=== PATIENT | female | born 1975 | race Caucasian/White ===

== ENCOUNTER 2017-08-28 12:35 | Emergency (ER) | payer SELFPAY ==
[~2017-08-28] VITALS: Ht 167.6 cm; Wt 76.0 kg
[2017-08-28 12:47] VITALS: BP 133/83; PULSE 84; RESP 16; O2SAT 100
--- NOTE | 2017-08-28 13:22 | PD ---
HPI Chief Complaint: Medical Clearance Time Seen by Provider: 13:11 Travel History International Travel<30 days: No Contact w/Intl Traveler<30days: No Traveled to known affect area: No History of Present Illness HPI 42-year-old female patient presents to the ER today, has previous history of mandibular dislocations, was yawning today and states that she thinks her mandible dislocated. She is not able to close her mouth completely, denies any other issues or injuries. Modifying Factors: None Associated Signs & Symptoms: Mandibular dislocation Risk Factors: [facility] Past Medical History Medical History: Denies Significant Hx Medical other: No (jaw locks up) Influenza Vaccination: Yes ?: Not LMP: tubes tied Tubal Ligation: Yes Past Surgical History Surgical History: No Previous Surgery Social History Alcohol Use: No Tobacco Use: No Substance Use: No (hx of) Allergies-Medications (Allergen,Severity, Reaction): Coded Allergies: No Known Allergies (Unverified , 08/28/17) Reported Meds & Prescriptions Reported Meds & Active Scripts Active No Active Prescriptions or Reported Medications Review of Systems Except as stated in HPI: all other systems reviewed are Neg Physical Exam Narrative GENERAL: Well-developed middle age female patient currently in moderate distress. Awake and oriented 3. SKIN: Focused skin assessment warm/dry. HEAD: Atraumatic. Normocephalic. EYES: Pupils equal and round. No scleral icterus. No injection or drainage. ENT: No nasal bleeding or discharge. Mucous membranes pink and moist. Notable for claudication, leftward deviation of the mandible. NECK: Trachea midline. No JVD. CARDIOVASCULAR: Regular rate and rhythm. No murmur appreciated. RESPIRATORY: No accessory muscle use. Clear to auscultation. Breath sounds equal bilaterally. GASTROINTESTINAL: Abdomen soft, non-tender, nondistended. Hepatic and splenic margins not palpable. MUSCULOSKELETAL: No obvious deformities. No clubbing. No cyanosis. No edema. NEUROLOGICAL: Awake and alert. No obvious cranial nerve deficits. Motor grossly within normal limits. Normal speech. PSYCHIATRIC: Appropriate mood and affect; insight and judgment normal. Data Data Last Documented VS Vital Signs Date Time Temp Pulse Resp B/P (MAP) Pulse Ox O2 Delivery O2 Flow Rate FiO2 08/28/17 12:47 84 16 133/83 (100) 100 Orders Orders Mandible, Complete (Min 4vws) (08/28/17 ) Hydromorphone Pf Inj (Dilaudid Pf Inj) (08/28/17 13:30) Ondansetron Inj (Zofran Inj) (08/28/17 13:30) Lorazepam Inj (Ativan Inj) (08/28/17 13:30) Ct Facial Bones W/O Iv Cont (08/28/17 14:38) Etomidate Inj (Amidate Inj) (08/28/17 15:30) Mandible, Ltd (Less Than 4vws) (08/28/17 ) MDM Medical Decision Making Medical Screen Exam Complete: Yes Emergency Medical Condition: Yes Medical Record Reviewed: Yes Interpretation(s) Last [address] 08/28/17 1438 Signed Impressions: Service Date/Time: Monday, August 28, 2017 14:54 - CONCLUSION: 1. Anterior right mandibular dislocation without acute fracture. Chuck Jones MD Mandible X-Ray 08/28/17 0000 Signed Impressions: Service Date/Time: Monday, August 28, 2017 13:43 - CONCLUSION: 1. Grossly unremarkable mandibular radiographs without evidence for bony destruction or fracture. Chuck Jones MD Differential Diagnosis Mandibular dislocation versus fractures Narrative Course Initial x-rays did not show any signs of obvious mandibular dislocation, CAT scan was done for further workup considering patient is fairly symptomatic and CAT scan is showing an anterior right mandibular dislocation. Patient had been given pain medication and Zofran in the ER as well as Ativan for pain and anxiety. Right mandibular was reduced under conscious sedation. Mandible was reduced without issues. Patient had no further claudication is able to talk normally after the procedure. She tolerated procedure well. Planning to release with follow-up to come the clinic for any ongoing problems with mandible dislocations. Return for any worsening in pain or new symptoms as needed. The plan has been discussed with her and she states understanding. Procedures Procedure Narrative After the risks and benefits were discussed the following procedure was performed: MODERATE SEDATION: The patient was placed on a ssds mk 2 advanced operator and pulse oximetry. An ambu bag and suction was immediately available at bedside. The patient was monitored by the nurse. Oxygen saturation, heart rate and blood pressure were monitored. Procedural sedation was acheived using 10 mg etomidate. The patient was observed until awake and alert. Procedural Sedation time in attendance was 10 minutes. Mandible was reduced by me with the patient seated in a 90 seated position, the right mandibular condyle was rotated and pushed posteriorly using the thumb , and reduce well. Patient tolerated procedure well. She had symmetrical opening of the mouth after reduction. Able to close and open jaw without issues. Diagnosis Primary Impression: Closed dislocation of mandible Med/Other Pt SpecificInfo: Prescription(s) given Scripts Ibuprofen (Ibuprofen) 600 Mg Tab 600 MG PO Q6H Y for PAIN, #20 TAB 0 Refills Prov: Merlin Parada MD 08/28/17 Disposition: 01 DISCHARGE HOME Condition: Stable Merlin Parada MD Aug 28, 2017 13:22
[2017-08-28] MEDS ORDERED: ONDANSETRON HCL 4 MG/2 ML VIAL IV PUSH ONE (13:30)
[2017-08-28] MEDS ORDERED: LORazepam 2 MG/ML VIAL IV PUSH ONE (13:30)
[2017-08-28] MEDS ORDERED: HYDROmorphone HCL PF 1 MG/ML VIAL IV PUSH ONE (13:30)
--- NOTE | 2017-08-28 14:14 | RADRPT ---
EXAM DATE/TIME: 08/28/2017 13:43 [facility] COMPARISON: No previous studies available for comparison. INDICATIONS : Patient complains of bilateral mandibular pain. No known injury. MEDICAL HISTORY : History of mandible dislocation. SURGICAL HISTORY : None. ENCOUNTER: Initial ACUITY: 1 day PAIN SCORE: 8/10 LOCATION: Mandible FINDINGS: Frontal, lateral, and oblique views of the mandible were performed. No fracture is seen. The condyl ar heads and necks appear normal. No dislocation is identified. Bony mineralization is normal. CONCLUSION: 1. Grossly unremarkable mandibular radiographs without evidence for bony destruction or fracture. Chuck Jones MD on August 28, 2017 at 14:10 Board Certified Radiologist. This report was verified electronically.
--- NOTE | 2017-08-28 15:17 | RADRPT ---
EXAM DATE/TIME: 08/28/2017 14:54 [facility] COMPARISON: MANDIBLE BILAT (MIN 4VWS), August 28, 2017, 13:43. INDICATIONS : Jaw pain today. RADIATION DOSE: 40.45 CTDIvol (mGy) MEDICAL HISTORY : None SURGICAL HISTORY : Tubal ligation. ENCOUNTER: Initial ACUITY: 1 day PAIN SCORE: 10/10 LOCATION: Bilateral mandible TECHNIQUE: Volumetric scanning of the facial bones was performed. Using automated exposure control and adjustme nt of the mA and/or kV according to patient size, radiation dose was kept as low as reasonably achiev able to obtain optimal diagnostic quality images. DICOM format image data is available electronicall y for review and comparison. FINDINGS: MANDIBLE: Examination is abnormal. There is anterior dislocation of the right mandible. The mandible otherwise is intact without evidence for acute fracture. There is sclerosis of the lef t mandibular head. ORBITS: The orbital and infraorbital osseous structures are intact. The retroconal structures have a no rmal configuration. No radiopaque foreign bodies are seen. NASAL BONE: The nasal bone and maxillary spine are intact ZYGOMATIC ARCHES: Symmetric without evidence of fracture. SINUSES: The maxillary, ethmoid and frontal sinuses are intact. No air-fluid levels seen. NASAL CAVITY: The nasal septum is intact and midline. The lacrimal ducts are intact. SOFT TISSUES: No radiopaque foreign bodies seen. No soft-tissue swelling is seen. INTRACRANIAL: No intracranial air seen. CRIBIFORM PLATE: Grossly intact. CONCLUSION: 1. Anterior right mandibular dislocation without acute fracture. Chuck Jones MD on August 28, 2017 at 15:10 Board Certified Radiologist. This report was verified electronically.
[2017-08-28] MEDS ORDERED: ETOMIDATE 20 MG/10 ML VIAL IV PUSH ONE (15:30)
[2017-08-28 16:04] VITALS: RESP 17
[2017-08-28] MEDS ORDERED: IBUP-232 PO (16:06)
--- NOTE | 2017-08-28 16:46 | RADRPT ---
EXAM DATE/TIME: 08/28/2017 16:29 [facility] COMPARISON: MANDIBLE BILAT (MIN 4VWS), August 28, 2017, 13:43. CT FACIAL BONES W/O CONTRAST, August 28, 2017 , 14:54. INDICATIONS : Status post reduction of dislocation. MEDICAL HISTORY : None. SURGICAL HISTORY : None. ENCOUNTER: Subsequent ACUITY: 1 day PAIN SCORE: 2/10 LOCATION: Mandible FINDINGS: No fracture or subluxation demonstrated. The previously seen anterior dislocation of the right tempor omandibular joint has been reduced. 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 I don't clearly see any acute bone destruction. CONCLUSION: Interim reduction of the right temporomandibular joint dislocation. Currently normal alignment. No fr acture demonstrated. Flaco Mercer MD on August 28, 2017 at 16:41 Board Certified Radiologist. This report was verified electronically.
== END 2017-08-28 17:45 | disposition home or self-care (01) ==
LOC: NEPC 12:35
DX: S03.01XA Dislocation of jaw, right side, initial encounter (principal); Z87.39 Personal history of other diseases of the musculoskeletal system and connective tissue; X58.XXXA Exposure to other specified factors, initial encounter
CPT/HCPCS: 21480; 70100; 70486; 96374; 96375; 99285; J1170; J2060; J2405; 70110